=== PATIENT | female | born 1980 | race Caucasian/White ===

== ENCOUNTER 2016-08-28 10:31 | Day surgery (SDC) | payer OTHER ==
[~2016-08-28] VITALS: Ht 162.6 cm; Wt 68.0 kg
[~2016-08-28 10:31] MED LIST: CEFAZOLIN 1GM IVPB FOR OMNI 50 ML IV PRN; FENTANYL PF 100 MCG/2 ML VIAL. IV PRN; HYDROMORPHONE 2 MG/ML VIAL. IV PRN; IV RINGERS,LACTATED 1000ML 1,000 ML IV SCH; LIDOCAINE 1% 1 ML SYRINGE. ID PRN; MORPHINE SULFATE 2 MG/ML DISP.SYRIN. IV PRN; ONDANSETRON PF 4 MG/2 ML VIAL. IV PRN; PROCHLORPERAZINE 10 MG/2 ML VIAL. IV PRN
[2016-08-28] MEDS ORDERED: PROPOFOL 20 ML IV ONE (10:54)
[2016-08-28] MEDS ORDERED: FENTANYL PF 100 MCG/2 ML VIAL. ONE (10:54)
[2016-08-28] MEDS ORDERED: LIDOCAINE 2% 100 MG/5 ML SYRINGE. ONE (10:54)
[2016-08-28] MEDS ORDERED: SUCCINYLCHOLINE 200 MG/10 ML VIAL. ONE (10:55)
[2016-08-28] MEDS ORDERED: ROCURONIUM 50 MG/5 ML VIAL. ONE (10:55)
[2016-08-28] MEDS ORDERED: SCOPOLAMINE 1.5MG PATCH. TD ONE ×2 (11:17→11:30)
[2016-08-28 11:24] LABS: BASO # 0.1 x10^3/uL (0.0-0.2); BASO % 1 % (0-3); EOS % 1 % (0-3); HEMATOCRIT 39.8 % (36.0-47.0); HEMOGLOBIN 13.4 g/dL (12.0-15.5); LYMPH # 2.1 x10^3/uL (1.0-4.8); LYMPH % 29 % (24-48); MEAN CORPUSCULAR HEMOGLOBIN 31 pg (25-35); MEAN CORPUSCULAR HGB CONC 34 g/dL (31-37); MEAN CORPUSCULAR VOLUME 92 fL (79-100); MONO % 6 % (0-9); NEUT % 63 % (31-73); PLATELET COUNT 259 x10^3/uL (140-400); RED BLOOD COUNT 4.35 x10^6/uL (3.50-5.40); WHITE BLOOD COUNT 7.2 x10^3/uL (4.0-11.0)
[2016-08-28] MEDS ORDERED: BUPIVACAINE-EPI 0.25%-1:200000 MPF 30 ML VIAL. ONE (11:56)
[2016-08-28] MEDS ORDERED: DEXAMETHASONE SOD PHOS 20 MG/5 ML VIAL. ONE (12:10)
[2016-08-28] MEDS ORDERED: KETOROLAC 30 MG/ML INJ FOR OR. INJ ONE (12:10)
[2016-08-28] MEDS ORDERED: FAMOTIDINE 20 MG/2 ML VIAL ONE (12:11)
[2016-08-28] MEDS ORDERED: ONDANSETRON PF 4 MG/2 ML VIAL. ONE (12:11)
[2016-08-28] MEDS ORDERED: DIPHENHYDRAMINE 50 MG/ML VIAL. ONE (12:11)
[2016-08-28] MEDS ORDERED: EPHEDRINE PF IN SALINE 50 MG/5 ML DISP.SYRIN. IV ONE (12:35)
[2016-08-28] MEDS ORDERED: GLYCOPYRROLATE 1 MG/5 ML VIAL. ONE (12:36)
[2016-08-28] MEDS ORDERED: SEVOFLURANE 31 TO 60 MINUTES. IH ONE (12:42)
[2016-08-28] MEDS ORDERED: NEOSTIGMINE METHYLSULFATE 5 MG/5 ML SYRINGE. ONE (12:42)
--- NOTE | 2016-08-28 12:57 | DISCH ---
DISCHARGE INSTRUCTIONS Condition on Discharge Condition on Discharge: Stable Activity After Discharge Activity Instructions for Disc: Activity as tolerated Lifting Instructions after Dis: No heavy lifting Driving Instructions after Dis: Do not drive today Diet after Discharge Diet after Discharge: Regular Contacting the [facility] after DC Call your doctor for: Concerns you may have Follow-Up Follow up with: Dr. Juares in 1 week. BUDDY JUARES Jr, MD Aug 28, 2016 12:57
--- NOTE | 2016-08-28 12:57 | PDOC ---
BRIEF OPERATIVE NOTE Pre-Op Diagnosis KENNEY Adnexal mass Post-Op Diagnosis KENNEY complex cyst [facility] Juares Anesthesia Type: General Blood Loss 5 ml Specimens Obtained Left fallopian tube and Left ovary Findings KENNEY complex cyst; nml ROV and fallopian tube Complications none Additional Remarks ptBUDDY Mock Jr, MD Aug 28, 2016 12:56
[2016-08-28] MEDS ORDERED: OXYC-323 PO (13:20)
[2016-08-28] MEDS ORDERED: OXYCODONE/APAP 5/325 TABLET. PO ONE (14:00)
[2016-08-28 14:10] VITALS: BP 126/66
--- NOTE | 2016-08-28 16:12 | OP ---
DATE OF SURGERY: PREOPERATIVE DIAGNOSIS: Left ovarian adnexal mass. POSTOPERATIVE DIAGNOSIS: Left ovarian complex cyst. PROCEDURE: Laparoscopic LSO. SURGEON: Jose Raul Juares M.D. ANESTHESIA: GETA. ESTIMATED BLOOD LOSS: 5 mL. COMPLICATIONS: None. FINDINGS: Left ovarian complex cyst, normal right ovary and normal right fallopian tube. SUMMARY: A 36-year-old with acute pelvic pain for the last week. Pelvic sonogram indicated a left adnexal mass. She was counseled on laparoscopic LSO risks, benefits and expectations and she voiced a clear understanding to proceed. DESCRIPTION OF PROCEDURE: The patient was taken to surgery suite and placed in dorsal lithotomy position. She was prepped with Betadine solution for vaginal prep and ChloraPrep for abdominal prep. After adequate anesthesia, moist sponge stick was placed vaginally. Attention was placed on abdomen. Small transverse skin incision was made just below the umbilicus with the scalpel. Veress needle was then placed through the infraumbilical incision site. The abdomen was allowed to insufflate up to 1-1/2 liters CO2 gas. The Veress needle was then removed. A 5 mm trocar was placed. Scope was positioned. The right fallopian tube and ovary appeared normal. The left ovary demonstrated a complex cyst of about 5 cm size. Two incisions were made in the left lower quadrant in which an 11 mm port and a 5 mm port were placed. With aid of EnSeal device, the left infundibulopelvic ligament was coagulated and dissected away from the left pelvic sidewall. The specimen was then placed in the Endobag and removed. The pedicle was hemostatic. This was verified with suction irrigation. A small amount of normal saline was left in the posterior cul-de-sac. The trocars were then removed under direct visualization. The abdomen was allowed to deflate as much as possible along with mechanical manipulation. The 11 mm port site was closed at the fascial layer using 2-0 Vicryl suture in a [id number] manner. The three skin incisions were reapproximated using 4-0 Vicryl suture in subcuticular manner. A 0.25% Marcaine with epinephrine was injected at each incision site. The moist sponge stick was removed. The patient was taken to recovery room in stable condition. Sponge and needle counts correct x 3. JOSE RAUL JUARES MD DR: MARIAELENA/surinder JOB#: [id number] / [id number]
--- NOTE | 2016-09-01 10:57 | PATHOLOGY ---
PATHOLOGY REPORT * * * * * * * * FINAL DIAGNOSIS: Ovary and fallopian tube, left, salpingo-oophorectomy: - Ovary with simple cysts. - Attached fallopian tube with simple paratubal cysts. (LAURA:; d/t: 09/01/16) REPORT ELECTRONICALLY SIGNED BY: Kelvin Gorman M.D. DATE/TIME: 09/01/2016 10:57 * * * * * * * * GROSS PATHOLOGY: The specimen is received in formalin, labeled "Bubba October, left tube and ovary". Received is an intact ovary with attached fallopian tube total weight of 19 g. The ovary measures 3.2 x 2.5 x 2.4 cm. The external surface shows a partially smooth, partially cerebriform pale yellowtan appearance. Sectioning reveals multiple clear fluid-filled cysts, ranging in size from 0.1 cm to 1.2 cm. No evidence of papillary excrescences are identified. The remainder of the cut surface displays interrogated white-vasquez, pale yellow appearance. No additional gross abnormalities. The fallopian tube measures 4.8 cm in length and up to 0.6 cm in diameter. The fimbria are not easily grossly identified. The serosal surface of the fallopian tube displays a wrinkled, pale pinktan appearance. Sectioning reveals a partially hollow lumen. Guide Plant sections are submitted in cassette A1. (SNA; 08/29/2016) INITIAL CPT CODE(S): A; 42990 Professional services performed [place] [address] Technical services performed by [employer] at [address] [place] [address], [facility] [address], [place] [address]. SPECIMEN(S) RECEIVED: A.Left tube and ovary CLINICAL HISTORY: Left adnexal mass PATIENT: LILY October /AGE: 408/21/1980 (Age: 36) PATIENT #: [id number] ALT CASE #: SPECIMEN COLLECTION DATE: 08/28/2016 SPECIMEN RECEIVED DATE: 08/28/2016 [facility] - [id number] [place] [address] - PHONE: [phone] * * * END OF REPORT * * *
== END 2016-08-28 14:18 | disposition home or self-care (01) ==
LOC: SURG 10:31
PROVIDERS: ATTEND Obstetrics & Gynecology
DX: N83.292 Other ovarian cyst, left side (principal); N83.8 Other noninflammatory disorders of ovary, fallopian tube and broad ligament; K21.9 Gastro-esophageal reflux disease without esophagitis; Z90.710 Acquired absence of both cervix and uterus; Z72.89 Other problems related to lifestyle
CPT/HCPCS: 36415; 58661; 85027; 86850; 86900; 86901; A4215; C1782; J0330; J0690; J1100; J1200; J1885; J2405; J2704; J2710; J3010; J3490; J7030; S0028